=== PATIENT | male | born 1970 | race Caucasian/White ===

== ENCOUNTER 2022-08-19 11:55 | Inpatient (IN) | payer OTHER ==
[2022-08-19 15:20] VITALS: BMI 25.8
[2022-08-19] MEDS ORDERED: METOPROLOL TARTRATE 25 MG TABLET (FP) PO ONE (19:07)
[2022-08-19] MEDS ORDERED: METOPROLOL TARTRATE 25 MG TABLET (FP) ONE (20:58)
[2022-08-19] MEDS ORDERED: LOPERAMIDE HCL 2 MG CAPSULE PO PRN (21:32)
[2022-08-19] MEDS ORDERED: MAGNESIUM HYDROX 2400MG/30ML ORAL SUSPENSION 30 ML CUP PO PRN (21:32)
[2022-08-19] MEDS ORDERED: BENZOCAINE/MENTHOL (CHLORASEPTIC ) LOZENGE MM PRN (21:32)
[2022-08-19] MEDS ORDERED: IBUPROFEN 400 MG TABLET (FP) PO PRN (21:32)
[2022-08-19] MEDS ORDERED: MAG HYDROX/AL HYDROX/SIMETH 30 ML UNIT-DOSE CUP PO PRN (21:32)
[2022-08-19] MEDS ORDERED: ACETAMINOPHEN 325 MG TABLET (FP) PO PRN (21:32)
[2022-08-19] MEDS ORDERED: POLYETHYLENE GLYCOL (HEALTHYLAX) 3350 17 GM PACKET PO PRN (21:32)
[2022-08-19] MEDS ORDERED: guaiFENesin 200 MG/10 ML 10 ML UNIT-DOSE CUPS PO PRN (21:32)
[2022-08-19] MEDS ORDERED: P-EPHED 60MG/TRIPROLIDI 2.5MG TABLET PO PRN (21:32)
[2022-08-19] MEDS ORDERED: TUBERCULIN PPD 5 TU/0.1ML VIAL ID ONE (22:50)
[2022-08-19] MEDS: GABAPENTIN 300 MG CAPSULE PO SCH (22:53)
[2022-08-19] MEDS: ATORVASTATIN CA 20 MG TABLET (FP) PO SCH (22:53)
[2022-08-19] MEDS: THIAMINE HCL 100 MG TABLET (FP) PO SCH (22:53)
[2022-08-19] MEDS: METOPROLOL TARTRATE 25 MG TABLET (FP) PO SCH (22:53)
[2022-08-19] MEDS: APIXABAN 5 MG TABLET PO SCH (22:53)
[2022-08-20] MEDS: hydrOXYzine PAMOATE 25 MG CAPSULE (FP) PO PRN (06:14)
[2022-08-20] MEDS: GABAPENTIN 300 MG CAPSULE PO SCH ×3 (06:14→21:06)
[2022-08-20] MEDS ORDERED: LEVOTHYROXINE NA 75 MCG TABLET (FP) PO SCH (07:00)
[2022-08-20] MEDS: PRENATAL VITAMINS W/ FOLIC ACID TABLET (FP) PO SCH (09:43)
[2022-08-20] MEDS: LEVOTHYROXINE NA 25 MCG TABLET (FP) PO SCH (09:43)
[2022-08-20] MEDS: APIXABAN 5 MG TABLET PO SCH ×2 (09:44→21:06)
[2022-08-20] MEDS: METOPROLOL TARTRATE 25 MG TABLET (FP) PO SCH ×2 (09:44→21:06)
[2022-08-20] MEDS: FOLIC ACID 1 MG TABLET (FP) PO SCH (09:44)
[2022-08-20] MEDS: PANTOPRAZOLE 20 MG TABLET PO SCH (09:44)
[2022-08-20 12:18] LABS: URINE APPEARANCE CLEAR; URINE BILIRUBIN NEGATIVE (NEGATIVE); URINE COLOR YELLOW; URINE GLUCOSE (UA) NEGATIVE (NEGATIVE); URINE KETONE NEGATIVE (NEGATIVE); URINE LEUK ESTERASE NEGATIVE (NEGATIVE); URINE NITRITE NEGATIVE (NEGATIVE); URINE PROTEIN NEGATIVE (NEGATIVE); URINE UROBILINOGEN 0.2 mg/dL (0.2-1.0)
[2022-08-20 12:27] LABS: HEMATOCRIT 38.3 % (35.4-49); HEMOGLOBIN 12.8 GM/dL (11.7-16.9); MCH 32.6 pg (25.7-33.7); MCHC 33.5 g/dl (32.0-35.9); MEAN CELL VOLUME 97.4 fl (80-96); MEAN PLT VOLUME 8.7 fl (7.5-11.1); PLATELET COUNT 171 10^3/uL (134-434); RBC 3.93 M/mm3 (4.00-5.60); RDW 15.8 % (11.9-15.9)
[2022-08-20 12:41] LABS: CALCIUM 9.6 mg/dL (8.5-10.1)
[2022-08-20 12:42] LABS: ALBUMIN 3.6 g/dl (3.4-5.0); BLOOD UREA NITROGEN 8.7 mg/dL (7-18)
[2022-08-20 12:45] LABS: CREATININE 0.7 mg/dL (0.55-1.3)
[2022-08-20 12:46] LABS: BILIRUBIN,TOTAL 0.4 mg/dL (0.2-1); TOT PROT 7.1 g/dl (6.4-8.2)
[2022-08-20] MEDS: THIAMINE HCL 100 MG TABLET (FP) PO SCH (21:06)
[2022-08-20] MEDS: ATORVASTATIN CA 20 MG TABLET (FP) PO SCH (21:06)
[2022-08-20] MEDS: MELATONIN 5 MG TABLETS PO PRN (21:06)
[2022-08-21] MEDS: GABAPENTIN 300 MG CAPSULE PO SCH ×3 (06:57→21:08)
[2022-08-21] MEDS: LEVOTHYROXINE NA 25 MCG TABLET (FP) PO SCH (06:57)
[2022-08-21] MEDS: PANTOPRAZOLE 20 MG TABLET PO SCH (09:50)
[2022-08-21] MEDS: FOLIC ACID 1 MG TABLET (FP) PO SCH (09:50)
[2022-08-21] MEDS: METOPROLOL TARTRATE 25 MG TABLET (FP) PO SCH ×2 (09:50→21:08)
[2022-08-21] MEDS: APIXABAN 5 MG TABLET PO SCH ×2 (09:50→21:08)
[2022-08-21] MEDS: PRENATAL VITAMINS W/ FOLIC ACID TABLET (FP) PO SCH (09:50)
[2022-08-21] MEDS: ATORVASTATIN CA 20 MG TABLET (FP) PO SCH (21:08)
[2022-08-21] MEDS: MELATONIN 5 MG TABLETS PO PRN (21:08)
[2022-08-21] MEDS: THIAMINE HCL 100 MG TABLET (FP) PO SCH (21:08)
[2022-08-22] MEDS: hydrOXYzine PAMOATE 25 MG CAPSULE (FP) PO PRN (06:11)
[2022-08-22] MEDS: LEVOTHYROXINE NA 25 MCG TABLET (FP) PO SCH (06:12)
[2022-08-22] MEDS: GABAPENTIN 300 MG CAPSULE PO SCH ×3 (06:12→21:09)
[2022-08-22] MEDS: FOLIC ACID 1 MG TABLET (FP) PO SCH (10:02)
[2022-08-22] MEDS: PANTOPRAZOLE 20 MG TABLET PO SCH (10:02)
[2022-08-22] MEDS: METOPROLOL TARTRATE 25 MG TABLET (FP) PO SCH ×2 (10:02→21:09)
[2022-08-22] MEDS: APIXABAN 5 MG TABLET PO SCH ×2 (10:02→21:08)
[2022-08-22] MEDS: PRENATAL VITAMINS W/ FOLIC ACID TABLET (FP) PO SCH (10:02)
[2022-08-22] MEDS: ATORVASTATIN CA 20 MG TABLET (FP) PO SCH (21:08)
[2022-08-22] MEDS: THIAMINE HCL 100 MG TABLET (FP) PO SCH (21:09)
[2022-08-22] MEDS: MELATONIN 5 MG TABLETS PO PRN (21:09)
[2022-08-23] MEDS: GABAPENTIN 300 MG CAPSULE PO SCH ×3 (05:51→21:20)
[2022-08-23] MEDS: LEVOTHYROXINE NA 25 MCG TABLET (FP) PO SCH (06:36)
[2022-08-23] MEDS ORDERED: cloNIDine HCL 0.1 MG TABLET PO ONE (07:02)
[2022-08-23] MEDS: PRENATAL VITAMINS W/ FOLIC ACID TABLET (FP) PO SCH (09:42)
[2022-08-23] MEDS: FOLIC ACID 1 MG TABLET (FP) PO SCH (09:42)
[2022-08-23] MEDS: PANTOPRAZOLE 20 MG TABLET PO SCH (09:42)
[2022-08-23] MEDS: METOPROLOL TARTRATE 25 MG TABLET (FP) PO SCH ×2 (09:42→21:20)
[2022-08-23] MEDS: APIXABAN 5 MG TABLET PO SCH ×2 (09:42→21:20)
[2022-08-23] MEDS: THIAMINE HCL 100 MG TABLET (FP) PO SCH (21:19)
[2022-08-23] MEDS: ATORVASTATIN CA 20 MG TABLET (FP) PO SCH (21:20)
[2022-08-23] MEDS: MELATONIN 5 MG TABLETS PO PRN (21:20)
[2022-08-24] MEDS: LEVOTHYROXINE NA 25 MCG TABLET (FP) PO SCH (06:04)
[2022-08-24] MEDS: GABAPENTIN 300 MG CAPSULE PO SCH ×3 (06:05→21:05)
[2022-08-24] MEDS: APIXABAN 5 MG TABLET PO SCH ×2 (10:13→21:05)
[2022-08-24] MEDS: PANTOPRAZOLE 20 MG TABLET PO SCH (10:13)
[2022-08-24] MEDS: METOPROLOL TARTRATE 25 MG TABLET (FP) PO SCH ×2 (10:13→21:05)
[2022-08-24] MEDS: FOLIC ACID 1 MG TABLET (FP) PO SCH (10:13)
[2022-08-24] MEDS: PRENATAL VITAMINS W/ FOLIC ACID TABLET (FP) PO SCH (10:13)
[2022-08-24] MEDS: THIAMINE HCL 100 MG TABLET (FP) PO SCH (21:05)
[2022-08-24] MEDS: ATORVASTATIN CA 20 MG TABLET (FP) PO SCH (21:05)
[2022-08-24] MEDS: MELATONIN 5 MG TABLETS PO PRN (21:05)
[2022-08-24] MEDS: hydrOXYzine PAMOATE 25 MG CAPSULE (FP) PO PRN (21:06)
[2022-08-25] MEDS: LEVOTHYROXINE NA 25 MCG TABLET (FP) PO SCH (06:08)
[2022-08-25] MEDS: GABAPENTIN 300 MG CAPSULE PO SCH ×3 (06:09→21:15)
[2022-08-25] MEDS: PANTOPRAZOLE 20 MG TABLET PO SCH (09:40)
[2022-08-25] MEDS: FOLIC ACID 1 MG TABLET (FP) PO SCH (09:40)
[2022-08-25] MEDS: PRENATAL VITAMINS W/ FOLIC ACID TABLET (FP) PO SCH (09:40)
[2022-08-25] MEDS: APIXABAN 5 MG TABLET PO SCH ×2 (09:41→21:15)
[2022-08-25] MEDS: METOPROLOL TARTRATE 25 MG TABLET (FP) PO SCH ×2 (09:41→10:31)
[2022-08-25] MEDS: hydrOXYzine PAMOATE 25 MG CAPSULE (FP) PO PRN (18:47)
[2022-08-25] MEDS: METOPROLOL TARTRATE 50 MG TABLET (FP) PO SCH (18:47)
[2022-08-25] MEDS: ATORVASTATIN CA 20 MG TABLET (FP) PO SCH (21:15)
[2022-08-25] MEDS: MELATONIN 5 MG TABLETS PO PRN (21:15)
[2022-08-25] MEDS: THIAMINE HCL 100 MG TABLET (FP) PO SCH (21:15)
[2022-08-26] MEDS: GABAPENTIN 300 MG CAPSULE PO SCH ×3 (05:55→21:07)
[2022-08-26] MEDS: LEVOTHYROXINE NA 25 MCG TABLET (FP) PO SCH (06:42)
[2022-08-26] MEDS: FOLIC ACID 1 MG TABLET (FP) PO SCH (10:03)
[2022-08-26] MEDS: APIXABAN 5 MG TABLET PO SCH ×2 (10:03→21:06)
[2022-08-26] MEDS: PRENATAL VITAMINS W/ FOLIC ACID TABLET (FP) PO SCH (10:03)
[2022-08-26] MEDS: PANTOPRAZOLE 20 MG TABLET PO SCH (10:03)
[2022-08-26] MEDS: METOPROLOL TARTRATE 25 MG TABLET (FP) PO SCH (10:03)
[2022-08-26] MEDS: METOPROLOL TARTRATE 50 MG TABLET (FP) PO SCH (18:50)
[2022-08-26] MEDS: MELATONIN 5 MG TABLETS PO PRN (21:07)
[2022-08-26] MEDS: THIAMINE HCL 100 MG TABLET (FP) PO SCH (21:07)
[2022-08-26] MEDS: ATORVASTATIN CA 20 MG TABLET (FP) PO SCH (21:07)
[2022-08-27] MEDS: GABAPENTIN 300 MG CAPSULE PO SCH ×3 (06:38→21:16)
[2022-08-27] MEDS: LEVOTHYROXINE NA 25 MCG TABLET (FP) PO SCH (06:38)
[2022-08-27] MEDS: hydrOXYzine PAMOATE 25 MG CAPSULE (FP) PO PRN (06:40)
[2022-08-27] MEDS: PRENATAL VITAMINS W/ FOLIC ACID TABLET (FP) PO SCH (10:10)
[2022-08-27] MEDS: FOLIC ACID 1 MG TABLET (FP) PO SCH (10:10)
[2022-08-27] MEDS: METOPROLOL TARTRATE 25 MG TABLET (FP) PO SCH (10:10)
[2022-08-27] MEDS: APIXABAN 5 MG TABLET PO SCH ×2 (10:10→21:17)
[2022-08-27] MEDS: PANTOPRAZOLE 20 MG TABLET PO SCH (10:11)
[2022-08-27] MEDS: METOPROLOL TARTRATE 50 MG TABLET (FP) PO SCH (18:55)
[2022-08-27] MEDS: THIAMINE HCL 100 MG TABLET (FP) PO SCH (21:17)
[2022-08-27] MEDS: MELATONIN 5 MG TABLETS PO PRN (21:17)
[2022-08-27] MEDS: ATORVASTATIN CA 20 MG TABLET (FP) PO SCH (21:17)
[2022-08-28] MEDS: LEVOTHYROXINE NA 25 MCG TABLET (FP) PO SCH (06:01)
[2022-08-28] MEDS: GABAPENTIN 300 MG CAPSULE PO SCH ×3 (06:01→21:06)
[2022-08-28] MEDS: hydrOXYzine PAMOATE 25 MG CAPSULE (FP) PO PRN ×2 (06:02→18:14)
[2022-08-28] MEDS: APIXABAN 5 MG TABLET PO SCH ×2 (09:53→21:06)
[2022-08-28] MEDS: FOLIC ACID 1 MG TABLET (FP) PO SCH (09:53)
[2022-08-28] MEDS: PRENATAL VITAMINS W/ FOLIC ACID TABLET (FP) PO SCH (09:53)
[2022-08-28] MEDS: METOPROLOL TARTRATE 25 MG TABLET (FP) PO SCH (09:53)
[2022-08-28] MEDS: PANTOPRAZOLE 20 MG TABLET PO SCH (09:54)
[2022-08-28] MEDS: METOPROLOL TARTRATE 50 MG TABLET (FP) PO SCH (18:14)
[2022-08-28] MEDS: MELATONIN 5 MG TABLETS PO PRN (21:06)
[2022-08-28] MEDS: ATORVASTATIN CA 20 MG TABLET (FP) PO SCH (21:06)
[2022-08-28] MEDS: THIAMINE HCL 100 MG TABLET (FP) PO SCH (21:06)
[2022-08-29] MEDS: GABAPENTIN 300 MG CAPSULE PO SCH ×3 (06:07→21:26)
[2022-08-29] MEDS: LEVOTHYROXINE NA 25 MCG TABLET (FP) PO SCH (06:07)
[2022-08-29] MEDS: hydrOXYzine PAMOATE 25 MG CAPSULE (FP) PO PRN (06:08)
[2022-08-29] MEDS: PRENATAL VITAMINS W/ FOLIC ACID TABLET (FP) PO SCH (09:56)
[2022-08-29] MEDS: PANTOPRAZOLE 20 MG TABLET PO SCH (09:57)
[2022-08-29] MEDS: METOPROLOL TARTRATE 25 MG TABLET (FP) PO SCH (09:57)
[2022-08-29] MEDS: FOLIC ACID 1 MG TABLET (FP) PO SCH (09:57)
[2022-08-29] MEDS: APIXABAN 5 MG TABLET PO SCH ×2 (09:57→21:26)
[2022-08-29] MEDS: METOPROLOL TARTRATE 50 MG TABLET (FP) PO SCH (18:50)
[2022-08-29] MEDS: MELATONIN 5 MG TABLETS PO PRN (21:26)
[2022-08-29] MEDS: THIAMINE HCL 100 MG TABLET (FP) PO SCH (21:26)
[2022-08-29] MEDS: ATORVASTATIN CA 20 MG TABLET (FP) PO SCH (21:26)
[2022-08-30] MEDS: GABAPENTIN 300 MG CAPSULE PO SCH ×3 (06:05→21:11)
[2022-08-30] MEDS: LEVOTHYROXINE NA 25 MCG TABLET (FP) PO SCH (06:05)
[2022-08-30] MEDS: PRENATAL VITAMINS W/ FOLIC ACID TABLET (FP) PO SCH (10:05)
[2022-08-30] MEDS: METOPROLOL TARTRATE 25 MG TABLET (FP) PO SCH (10:05)
[2022-08-30] MEDS: APIXABAN 5 MG TABLET PO SCH ×2 (10:05→21:11)
[2022-08-30] MEDS: PANTOPRAZOLE 20 MG TABLET PO SCH (10:05)
[2022-08-30] MEDS: FOLIC ACID 1 MG TABLET (FP) PO SCH (10:05)
[2022-08-30] MEDS: METOPROLOL TARTRATE 50 MG TABLET (FP) PO SCH (18:20)
[2022-08-30] MEDS: hydrOXYzine PAMOATE 25 MG CAPSULE (FP) PO PRN (21:11)
[2022-08-30] MEDS: THIAMINE HCL 100 MG TABLET (FP) PO SCH (21:11)
[2022-08-30] MEDS: MELATONIN 5 MG TABLETS PO PRN (21:11)
[2022-08-30] MEDS: ATORVASTATIN CA 20 MG TABLET (FP) PO SCH (21:11)
[2022-08-31] MEDS: LEVOTHYROXINE NA 25 MCG TABLET (FP) PO SCH (06:17)
[2022-08-31] MEDS: hydrOXYzine PAMOATE 25 MG CAPSULE (FP) PO PRN (06:17)
[2022-08-31] MEDS: GABAPENTIN 300 MG CAPSULE PO SCH ×3 (06:17→21:35)
[2022-08-31 08:05] VITALS: RESP 18
[2022-08-31] MEDS: METOPROLOL TARTRATE 25 MG TABLET (FP) PO SCH (09:48)
[2022-08-31] MEDS: FOLIC ACID 1 MG TABLET (FP) PO SCH (09:48)
[2022-08-31] MEDS: PRENATAL VITAMINS W/ FOLIC ACID TABLET (FP) PO SCH (09:48)
[2022-08-31] MEDS: APIXABAN 5 MG TABLET PO SCH ×2 (09:48→21:35)
[2022-08-31] MEDS: PANTOPRAZOLE 20 MG TABLET PO SCH (09:48)
[2022-08-31] MEDS: METOPROLOL TARTRATE 50 MG TABLET (FP) PO SCH (18:57)
[2022-08-31] MEDS: MELATONIN 5 MG TABLETS PO PRN (21:35)
[2022-08-31] MEDS: THIAMINE HCL 100 MG TABLET (FP) PO SCH (21:35)
[2022-08-31] MEDS: ATORVASTATIN CA 20 MG TABLET (FP) PO SCH (21:35)
[2022-09-01] MEDS: GABAPENTIN 300 MG CAPSULE PO SCH (05:44)
[2022-09-01] MEDS: hydrOXYzine PAMOATE 25 MG CAPSULE (FP) PO PRN (05:45)
[2022-09-01] MEDS: LEVOTHYROXINE NA 25 MCG TABLET (FP) PO SCH (06:02)
[2022-09-01 06:33] VITALS: TEMP 98
[2022-09-01 09:05] VITALS: BP 146/86; PULSE 87
[2022-09-01] MEDS: APIXABAN 5 MG TABLET PO SCH (10:06)
[2022-09-01] MEDS: FOLIC ACID 1 MG TABLET (FP) PO SCH (10:06)
[2022-09-01] MEDS: METOPROLOL TARTRATE 25 MG TABLET (FP) PO SCH (10:06)
[2022-09-01] MEDS: PRENATAL VITAMINS W/ FOLIC ACID TABLET (FP) PO SCH (10:06)
[2022-09-01] MEDS: PANTOPRAZOLE 20 MG TABLET PO SCH (10:06)
== END 2022-09-01 12:50 | disposition home or self-care (01) | DRG 772 ==
LOC: YASAS 11:55 → Y3W 22:29
PROVIDERS: ADMIT Allergy & Immunology; ATTEND Allergy & Immunology
PROC: HZ42ZZZ Group Counseling for Substance Abuse Treatment, Cognitive-Behavioral (ICD-10-PCS; principal; 2022-08-19)
DX: F10.20 Alcohol dependence, uncomplicated (principal); I10 Essential (primary) hypertension; E03.9 Hypothyroidism, unspecified; E78.5 Hyperlipidemia, unspecified; K21.9 Gastro-esophageal reflux disease without esophagitis; Z86.711 Personal history of pulmonary embolism; Z86.718 Personal history of other venous thrombosis and embolism; Z79.01 Long term (current) use of anticoagulants
CPT/HCPCS: 36415; 80053; 81003; 85027; 86780; C9803-CS; U0003; U0005

== ENCOUNTER 2023-04-06 12:39 | Inpatient (IN) | payer OTHER ==
[2023-04-06 13:07] VITALS: BMI 23.6
[2023-04-06] MEDS ORDERED: BENZOCAINE/MENTHOL (CHLORASEPTIC ) LOZENGE MM PRN (14:29)
[2023-04-06] MEDS ORDERED: MAGNESIUM HYDROX 2400MG/30ML ORAL SUSPENSION 30 ML CUP PO PRN (14:29)
[2023-04-06] MEDS ORDERED: IBUPROFEN 400 MG TABLET (FP) PO PRN (14:29)
[2023-04-06] MEDS ORDERED: ACETAMINOPHEN 325 MG TABLET (FP) PO PRN (14:29)
[2023-04-06] MEDS ORDERED: IBUPROFEN 600 MG TABLET (FP) PO PRN (14:29)
[2023-04-06] MEDS ORDERED: LOPERAMIDE HCL 2 MG CAPSULE PO PRN (14:29)
[2023-04-06] MEDS ORDERED: COLLOIDAL OATMEAL 1 BAR EACH TP PRN (14:29)
[2023-04-06] MEDS ORDERED: hydrOXYzine PAMOATE 25 MG CAPSULE (FP) PO PRN (14:29)
[2023-04-06] MEDS ORDERED: POLYETHYLENE GLYCOL (HEALTHYLAX) 3350 17 GM PACKET PO PRN (14:29)
[2023-04-06] MEDS ORDERED: NALOXONE HCL (KLOXXADO) 8 MG SPRAY NS PRN (14:29)
[2023-04-06] MEDS ORDERED: NALOXONE HCL 0.4 MG/ML VIAL IM PRN (14:29)
[2023-04-06] MEDS ORDERED: guaiFENesin 600 MG TABLET.ER (FP) PO PRN (14:29)
[2023-04-06] MEDS ORDERED: MAG HYDROX/AL HYDROX/SIMETH 30 ML UNIT-DOSE CUP PO PRN (14:29)
[2023-04-06] MEDS ORDERED: BENZONATATE 200 MG CAPSULE PO PRN (14:29)
[2023-04-06 17:05] LABS: POTASSIUM 4.4 mmol/L (3.5-5.1)
[2023-04-06 17:09] LABS: HEMATOCRIT 39.3 % (35.4-49); HEMOGLOBIN 13.5 GM/dL (11.7-16.9); MCH 32.3 pg (25.7-33.7); MCHC 34.3 g/dl (32.0-35.9); MEAN CELL VOLUME 94.3 fl (80-96); MEAN PLT VOLUME 8.8 fl (7.5-11.1); PLATELET COUNT 125 10^3/uL (134-434); RBC 4.16 M/mm3 (4.00-5.60); RDW 14.1 % (11.9-15.9); WHITE BLOOD COUNT 4.9 K/mm3 (4.0-10.0)
[2023-04-06 17:10] LABS: ALBUMIN 3.6 g/dl (3.4-5.0); BLOOD UREA NITROGEN 12.2 mg/dL (7-18)
[2023-04-06 17:13] LABS: CREATININE 0.9 mg/dL (0.55-1.3)
[2023-04-06 17:14] LABS: BILIRUBIN,TOTAL 0.3 mg/dL (0.2-1); TOT PROT 7.2 g/dl (6.4-8.2)
[2023-04-06] MEDS: MELATONIN 5 MG TABLETS PO SCH (21:17)
[2023-04-06] MEDS: THIAMINE HCL 100 MG TABLET (FP) PO SCH (21:17)
[2023-04-07] MEDS: PRENATAL VITAMINS W/ FOLIC ACID TABLET (FP) PO SCH (10:18)
[2023-04-07 11:56] LABS: URINE APPEARANCE Clear; URINE BILIRUBIN Negative (NEGATIVE); URINE COLOR Yellow; URINE GLUCOSE (UA) Negative (NEGATIVE); URINE KETONE Negative (NEGATIVE); URINE LEUK ESTERASE Negative (NEGATIVE); URINE NITRITE Negative (NEGATIVE); URINE PROTEIN Negative (NEGATIVE); URINE UROBILINOGEN 0.2 mg/dL (0.2-1.0)
[2023-04-07] MEDS: LEVOTHYROXINE NA 25 MCG TABLET (FP) PO SCH (14:46)
[2023-04-07] MEDS: PANTOPRAZOLE 20 MG TABLET PO SCH (14:46)
[2023-04-07] MEDS: METOPROLOL TARTRATE 50 MG TABLET (FP) PO SCH (14:48)
[2023-04-07] MEDS: APIXABAN 5 MG TABLET PO SCH ×2 (14:48→21:04)
[2023-04-07] MEDS: ATORVASTATIN CA 20 MG TABLET (FP) PO SCH (21:04)
[2023-04-07] MEDS: THIAMINE HCL 100 MG TABLET (FP) PO SCH (21:04)
[2023-04-07] MEDS: MELATONIN 5 MG TABLETS PO SCH (21:04)
[2023-04-08] MEDS: LEVOTHYROXINE NA 25 MCG TABLET (FP) PO SCH (06:37)
[2023-04-08] MEDS: APIXABAN 5 MG TABLET PO SCH ×2 (09:30→21:02)
[2023-04-08] MEDS: PANTOPRAZOLE 20 MG TABLET PO SCH (09:30)
[2023-04-08] MEDS: PRENATAL VITAMINS W/ FOLIC ACID TABLET (FP) PO SCH (09:30)
[2023-04-08] MEDS: METOPROLOL TARTRATE 50 MG TABLET (FP) PO SCH (09:30)
[2023-04-08] MEDS: MELATONIN 5 MG TABLETS PO SCH (21:02)
[2023-04-08] MEDS: THIAMINE HCL 100 MG TABLET (FP) PO SCH (21:02)
[2023-04-08] MEDS: ATORVASTATIN CA 20 MG TABLET (FP) PO SCH (21:02)
[2023-04-09] MEDS: LEVOTHYROXINE NA 25 MCG TABLET (FP) PO SCH (06:05)
[2023-04-09] MEDS: APIXABAN 5 MG TABLET PO SCH ×2 (10:11→21:05)
[2023-04-09] MEDS: METOPROLOL TARTRATE 50 MG TABLET (FP) PO SCH (10:11)
[2023-04-09] MEDS: PRENATAL VITAMINS W/ FOLIC ACID TABLET (FP) PO SCH (10:11)
[2023-04-09] MEDS: PANTOPRAZOLE 20 MG TABLET PO SCH (10:11)
[2023-04-09] MEDS: THIAMINE HCL 100 MG TABLET (FP) PO SCH (21:05)
[2023-04-09] MEDS: ATORVASTATIN CA 20 MG TABLET (FP) PO SCH (21:05)
[2023-04-09] MEDS: MELATONIN 5 MG TABLETS PO SCH (21:05)
[2023-04-10] MEDS: LEVOTHYROXINE NA 25 MCG TABLET (FP) PO SCH (06:05)
[2023-04-10] MEDS: APIXABAN 5 MG TABLET PO SCH ×2 (09:44→21:11)
[2023-04-10] MEDS: METOPROLOL TARTRATE 50 MG TABLET (FP) PO SCH (09:44)
[2023-04-10] MEDS: PRENATAL VITAMINS W/ FOLIC ACID TABLET (FP) PO SCH (09:44)
[2023-04-10] MEDS: PANTOPRAZOLE 20 MG TABLET PO SCH (09:44)
[2023-04-10] MEDS: THIAMINE HCL 100 MG TABLET (FP) PO SCH (21:11)
[2023-04-10] MEDS: ATORVASTATIN CA 20 MG TABLET (FP) PO SCH (21:11)
[2023-04-10] MEDS: MELATONIN 5 MG TABLETS PO SCH (21:11)
[2023-04-11] MEDS: LEVOTHYROXINE NA 25 MCG TABLET (FP) PO SCH (06:15)
[2023-04-11] MEDS: PRENATAL VITAMINS W/ FOLIC ACID TABLET (FP) PO SCH (09:07)
[2023-04-11] MEDS: APIXABAN 5 MG TABLET PO SCH ×2 (09:07→21:32)
[2023-04-11] MEDS: METOPROLOL TARTRATE 50 MG TABLET (FP) PO SCH (09:07)
[2023-04-11] MEDS: PANTOPRAZOLE 20 MG TABLET PO SCH (09:07)
[2023-04-11] MEDS: MELATONIN 5 MG TABLETS PO SCH (21:32)
[2023-04-11] MEDS: THIAMINE HCL 100 MG TABLET (FP) PO SCH (21:32)
[2023-04-11] MEDS: ATORVASTATIN CA 20 MG TABLET (FP) PO SCH (21:32)
[2023-04-12] MEDS: LEVOTHYROXINE NA 25 MCG TABLET (FP) PO SCH (06:14)
[2023-04-12] MEDS: APIXABAN 5 MG TABLET PO SCH ×2 (09:41→21:29)
[2023-04-12] MEDS: METOPROLOL TARTRATE 50 MG TABLET (FP) PO SCH (09:41)
[2023-04-12] MEDS: PANTOPRAZOLE 20 MG TABLET PO SCH (09:41)
[2023-04-12] MEDS: PRENATAL VITAMINS W/ FOLIC ACID TABLET (FP) PO SCH (09:41)
[2023-04-12] MEDS: MELATONIN 5 MG TABLETS PO SCH (21:29)
[2023-04-12] MEDS: THIAMINE HCL 100 MG TABLET (FP) PO SCH (21:29)
[2023-04-12] MEDS: ATORVASTATIN CA 20 MG TABLET (FP) PO SCH (21:29)
[2023-04-13] MEDS: LEVOTHYROXINE NA 25 MCG TABLET (FP) PO SCH (06:02)
[2023-04-13] MEDS: METOPROLOL TARTRATE 50 MG TABLET (FP) PO SCH (09:16)
[2023-04-13] MEDS: PRENATAL VITAMINS W/ FOLIC ACID TABLET (FP) PO SCH (09:16)
[2023-04-13] MEDS: PANTOPRAZOLE 20 MG TABLET PO SCH (09:16)
[2023-04-13] MEDS: APIXABAN 5 MG TABLET PO SCH ×2 (09:16→21:11)
[2023-04-13] MEDS: ATORVASTATIN CA 20 MG TABLET (FP) PO SCH (21:11)
[2023-04-13] MEDS: THIAMINE HCL 100 MG TABLET (FP) PO SCH (21:11)
[2023-04-13] MEDS: MELATONIN 5 MG TABLETS PO SCH (21:11)
[2023-04-14] MEDS: LEVOTHYROXINE NA 25 MCG TABLET (FP) PO SCH (06:10)
[2023-04-14] MEDS: PRENATAL VITAMINS W/ FOLIC ACID TABLET (FP) PO SCH (09:16)
[2023-04-14] MEDS: METOPROLOL TARTRATE 50 MG TABLET (FP) PO SCH (09:17)
[2023-04-14] MEDS: PANTOPRAZOLE 20 MG TABLET PO SCH (09:17)
[2023-04-14] MEDS: APIXABAN 5 MG TABLET PO SCH ×2 (09:17→21:09)
[2023-04-14] MEDS: MELATONIN 5 MG TABLETS PO SCH (21:09)
[2023-04-14] MEDS: ATORVASTATIN CA 20 MG TABLET (FP) PO SCH (21:09)
[2023-04-14] MEDS: THIAMINE HCL 100 MG TABLET (FP) PO SCH (21:09)
[2023-04-15] MEDS: LEVOTHYROXINE NA 25 MCG TABLET (FP) PO SCH (06:00)
[2023-04-15] MEDS: PRENATAL VITAMINS W/ FOLIC ACID TABLET (FP) PO SCH (10:25)
[2023-04-15] MEDS: PANTOPRAZOLE 20 MG TABLET PO SCH (10:26)
[2023-04-15] MEDS: METOPROLOL TARTRATE 50 MG TABLET (FP) PO SCH (10:26)
[2023-04-15] MEDS: APIXABAN 5 MG TABLET PO SCH ×2 (10:26→21:11)
[2023-04-15] MEDS: MELATONIN 5 MG TABLETS PO SCH (21:11)
[2023-04-15] MEDS: ATORVASTATIN CA 20 MG TABLET (FP) PO SCH (21:11)
[2023-04-15] MEDS: THIAMINE HCL 100 MG TABLET (FP) PO SCH (21:11)
[2023-04-16] MEDS: LEVOTHYROXINE NA 25 MCG TABLET (FP) PO SCH (06:12)
[2023-04-16] MEDS: PANTOPRAZOLE 20 MG TABLET PO SCH (09:38)
[2023-04-16] MEDS: APIXABAN 5 MG TABLET PO SCH ×2 (09:38→21:08)
[2023-04-16] MEDS: METOPROLOL TARTRATE 50 MG TABLET (FP) PO SCH (09:38)
[2023-04-16] MEDS: PRENATAL VITAMINS W/ FOLIC ACID TABLET (FP) PO SCH (09:38)
[2023-04-16] MEDS: MELATONIN 5 MG TABLETS PO SCH (21:08)
[2023-04-16] MEDS: ATORVASTATIN CA 20 MG TABLET (FP) PO SCH (21:08)
[2023-04-16] MEDS: THIAMINE HCL 100 MG TABLET (FP) PO SCH (21:08)
[2023-04-17] MEDS: LEVOTHYROXINE NA 25 MCG TABLET (FP) PO SCH (06:23)
[2023-04-17] MEDS: PANTOPRAZOLE 20 MG TABLET PO SCH (10:00)
[2023-04-17] MEDS: APIXABAN 5 MG TABLET PO SCH ×2 (10:00→21:10)
[2023-04-17] MEDS: METOPROLOL TARTRATE 50 MG TABLET (FP) PO SCH (10:00)
[2023-04-17] MEDS: PRENATAL VITAMINS W/ FOLIC ACID TABLET (FP) PO SCH (10:00)
[2023-04-17] MEDS: THIAMINE HCL 100 MG TABLET (FP) PO SCH (21:10)
[2023-04-17] MEDS: MELATONIN 5 MG TABLETS PO SCH (21:10)
[2023-04-17] MEDS: ATORVASTATIN CA 20 MG TABLET (FP) PO SCH (21:10)
[2023-04-18] MEDS: LEVOTHYROXINE NA 25 MCG TABLET (FP) PO SCH (06:15)
[2023-04-18] MEDS: METOPROLOL TARTRATE 50 MG TABLET (FP) PO SCH (10:00)
[2023-04-18] MEDS: PRENATAL VITAMINS W/ FOLIC ACID TABLET (FP) PO SCH (10:00)
[2023-04-18] MEDS: PANTOPRAZOLE 20 MG TABLET PO SCH (10:00)
[2023-04-18] MEDS: APIXABAN 5 MG TABLET PO SCH ×2 (10:00→21:06)
[2023-04-18] MEDS: ATORVASTATIN CA 20 MG TABLET (FP) PO SCH (21:06)
[2023-04-18] MEDS: THIAMINE HCL 100 MG TABLET (FP) PO SCH (21:06)
[2023-04-18] MEDS: MELATONIN 5 MG TABLETS PO SCH (21:07)
[2023-04-19] MEDS: LEVOTHYROXINE NA 25 MCG TABLET (FP) PO SCH (06:05)
[2023-04-19 07:10] VITALS: RESP 18; TEMP 97.5
[2023-04-19 09:10] VITALS: BP 159/98; PULSE 105
[2023-04-19] MEDS: METOPROLOL TARTRATE 50 MG TABLET (FP) PO SCH (09:31)
[2023-04-19] MEDS: APIXABAN 5 MG TABLET PO SCH (09:31)
[2023-04-19] MEDS: PANTOPRAZOLE 20 MG TABLET PO SCH (09:31)
[2023-04-19] MEDS: PRENATAL VITAMINS W/ FOLIC ACID TABLET (FP) PO SCH (09:32)
== END 2023-04-19 09:42 | disposition home or self-care (01) | DRG 772 ==
LOC: YASAS 12:39 → Y3W 20:50
PROVIDERS: ADMIT Allergy & Immunology; ATTEND Psychiatry & Neurology Pain Medicine
PROC: HZ42ZZZ Group Counseling for Substance Abuse Treatment, Cognitive-Behavioral (ICD-10-PCS; principal; 2023-04-03)
DX: F10.20 Alcohol dependence, uncomplicated (principal); I10 Essential (primary) hypertension; E78.5 Hyperlipidemia, unspecified; E03.9 Hypothyroidism, unspecified; K21.9 Gastro-esophageal reflux disease without esophagitis; Z87.891 Personal history of nicotine dependence; Z86.718 Personal history of other venous thrombosis and embolism; Z86.711 Personal history of pulmonary embolism; Z79.01 Long term (current) use of anticoagulants
CPT/HCPCS: 36415; 80053; 81003; 85027; 86780; 87635; 87811; 93005; 93010

== ENCOUNTER 2024-02-24 17:21 | Inpatient (IN) | payer OTHER ==
[2024-02-24 18:04] VITALS: BMI 26.6
[2024-02-24] MEDS ORDERED: MAG HYDROX/AL HYDROX/SIMETH 30 ML UNIT-DOSE CUP PO PRN (20:06)
[2024-02-24] MEDS ORDERED: POLYETHYLENE GLYCOL (HEALTHYLAX) 3350 17 GM PACKET PO PRN (20:06)
[2024-02-24] MEDS ORDERED: DICYCLOMINE HCL 10 MG CAPSULE PO PRN (20:06)
[2024-02-24] MEDS ORDERED: BENZONATATE 200 MG CAPSULE PO PRN (20:06)
[2024-02-24] MEDS ORDERED: BISMUTH SUBSALICYLATE 524 MG/30 ML PO PRN (20:06)
[2024-02-24] MEDS ORDERED: MAGNESIUM HYDROX 2400MG/30ML ORAL SUSPENSION 30 ML CUP PO PRN (20:06)
[2024-02-24] MEDS ORDERED: ONDANSETRON *ODT* 4 MG TABLET SL PRN (20:06)
[2024-02-24] MEDS ORDERED: BENZOCAINE/MENTHOL (CHLORASEPTIC ) LOZENGE MM PRN (20:06)
[2024-02-24] MEDS ORDERED: guaiFENesin 600 MG TABLET.ER (FP) PO PRN (20:06)
[2024-02-24] MEDS ORDERED: IBUPROFEN 400 MG TABLET (FP) PO PRN (20:06)
[2024-02-24] MEDS ORDERED: LOPERAMIDE HCL 2 MG CAPSULE PO PRN (20:06)
[2024-02-24] MEDS ORDERED: diazePAM 5 MG TABLET ONE (21:11)
[2024-02-24] MEDS: diazePAM 5 MG TABLET PO ONE (21:15)
[2024-02-24] MEDS: THIAMINE 100 MG TABLET PO SCH (22:17)
[2024-02-24] MEDS: MELATONIN 5 MG TABLETS PO SCH (22:17)
[2024-02-24] MEDS: METHOCARBAMOL 500 MG TABLET PO PRN (22:54)
[2024-02-24] MEDS: IBUPROFEN 600 MG TABLET (FP) PO PRN (22:54)
[2024-02-24] MEDS: diazePAM 5 MG TABLET PO SCH (23:00)
[2024-02-25] MEDS: PRENATAL VITAMINS W/ FOLIC ACID TABLET (FP) PO SCH (10:14)
[2024-02-25] MEDS: hydrOXYzine PAMOATE 25 MG CAPSULE (FP) PO PRN (10:15)
[2024-02-25 10:22] LABS: HEMATOCRIT 41.4 % (35.4-49); HEMOGLOBIN 14.1 GM/dL (11.7-16.9); MCH 33.1 pg (25.7-33.7); MEAN CELL VOLUME 97.3 fl (80-96); MEAN PLT VOLUME 8.4 fl (7.5-11.1); PLATELET COUNT 222 10^3/uL (134-434); RBC 4.25 M/mm3 (4.00-5.60); RDW 17.1 % (11.9-15.9); WHITE BLOOD COUNT 6.1 K/mm3 (4.0-10.0)
[2024-02-25 10:45] LABS: CHLORIDE 102 mmol/L (98-107); POTASSIUM 4.2 mmol/L (3.5-5.1); SODIUM 136 mmol/L (136-145)
[2024-02-25 10:47] LABS: ALBUMIN 3.4 g/dl (3.4-5.0); ANION GAP 11 mmol/L (4-13); BLOOD UREA NITROGEN 18.6 mg/dL (7-18); CALCIUM 8.7 mg/dL (8.5-10.1); CO2 24 mmol/L (21-32)
[2024-02-25 10:48] LABS: GLUCOSE,RANDOM 100 mg/dL (74-106)
[2024-02-25 10:50] LABS: SGOT/AST 27 U/L (15-37); SGPT/ALT 35 U/L (13-61)
[2024-02-25 10:51] LABS: CREATININE 0.6 mg/dL (0.55-1.3)
[2024-02-25 10:52] LABS: BILIRUBIN,TOTAL 1.2 mg/dL (0.2-1); TOT PROT 7.1 g/dl (6.4-8.2)
[2024-02-25 10:53] LABS: ALK PHOS 94 U/L (45-117)
[2024-02-25] MEDS: METOPROLOL TARTRATE 50 MG TABLET (FP) PO SCH (11:51)
[2024-02-25] MEDS: PANTOPRAZOLE 20 MG TABLET PO SCH (11:52)
[2024-02-25] MEDS: NALTREXONE HCL 50 MG TABLET PO SCH (11:52)
[2024-02-25] MEDS: ATORVASTATIN CA 20 MG TABLET (FP) PO SCH (22:24)
[2024-02-26] MEDS: diazePAM 5 MG TABLET PO SCH (05:32)
[2024-02-26] MEDS: LEVOTHYROXINE NA 75 MCG TABLET (FP) PO SCH (06:06)
[2024-02-26] MEDS: diazePAM 5 MG TABLET PO PRN (09:10)
[2024-02-27] MEDS: diazePAM 5 MG TABLET PO SCH (05:34)
[2024-02-27] MEDS: METOPROLOL TARTRATE 25 MG TABLET (FP) PO ONE (13:32)
[2024-02-27] MEDS: ACETAMINOPHEN 325 MG TABLET (FP) PO PRN (22:34)
[2024-02-28] MEDS: diazePAM 5 MG TABLET PO ONE (05:35)
[2024-02-28] MEDS: amLODIPine BESYLATE 5 MG TABLET (FP) PO ONE (09:55)
[2024-02-28] MEDS: HYDROCHLOROTHIAZIDE 25 MG TABLET (FP) PO SCH (14:29)
[2024-02-28] MEDS: MAGNESIUM OXIDE 400 MG TABLET (FP) PO SCH (22:51)
[2024-02-29] MEDS: amLODIPine BESYLATE 5 MG TABLET (FP) PO SCH (09:49)
[2024-02-29 16:59] VITALS: BP 136/87; PULSE 95; RESP 18; TEMP 98.6
== END 2024-02-29 17:07 | disposition other institution (70) | DRG 775 ==
LOC: YASAS 17:21 → Y6N 21:17
PROVIDERS: ADMIT Allergy & Immunology; ATTEND Surgery
PROC: HZ2ZZZZ Detoxification Services for Substance Abuse Treatment (ICD-10-PCS; principal; 2024-02-24)
DX: F10.230 Alcohol dependence with withdrawal, uncomplicated (principal); F32.A Depression, unspecified; I10 Essential (primary) hypertension; E03.9 Hypothyroidism, unspecified; E78.5 Hyperlipidemia, unspecified; K21.9 Gastro-esophageal reflux disease without esophagitis; R00.0 Tachycardia, unspecified; Z86.718 Personal history of other venous thrombosis and embolism; Z56.0 Unemployment, unspecified; Z59.00 Homelessness unspecified
CPT/HCPCS: 36415; 80053; 80305; 80307; 85027; 86780; 87811; 93005; 93010

== ENCOUNTER 2024-02-29 17:08 | Inpatient (IN) | payer OTHER ==
[2024-02-29] MEDS ORDERED: MAG HYDROX/AL HYDROX/SIMETH 30 ML UNIT-DOSE CUP PO PRN (17:55)
[2024-02-29] MEDS ORDERED: guaiFENesin 600 MG TABLET.ER (FP) PO PRN (17:55)
[2024-02-29] MEDS ORDERED: MAGNESIUM HYDROX 2400MG/30ML ORAL SUSPENSION 30 ML CUP PO PRN (17:55)
[2024-02-29] MEDS ORDERED: POLYETHYLENE GLYCOL (HEALTHYLAX) 3350 17 GM PACKET PO PRN (17:55)
[2024-02-29] MEDS ORDERED: BENZOCAINE/MENTHOL (CHLORASEPTIC ) LOZENGE MM PRN (17:55)
[2024-02-29] MEDS ORDERED: BENZONATATE 200 MG CAPSULE PO PRN (17:55)
[2024-02-29] MEDS ORDERED: METHOCARBAMOL 500 MG TABLET PO PRN (17:55)
[2024-02-29] MEDS ORDERED: LOPERAMIDE HCL 2 MG CAPSULE PO PRN (17:55)
[2024-02-29] MEDS: ACETAMINOPHEN 325 MG TABLET (FP) PO PRN (22:09)
[2024-02-29] MEDS: THIAMINE 100 MG TABLET PO SCH (22:10)
[2024-02-29] MEDS: ATORVASTATIN CA 20 MG TABLET (FP) PO SCH (22:10)
[2024-02-29] MEDS: MELATONIN 5 MG TABLETS PO SCH (22:10)
[2024-03-01 00:18] LABS: PH,URINE 5.5 (5.0-8.0); URINE APPEARANCE CLEAR; URINE BILIRUBIN NEGATIVE (NEGATIVE); URINE COLOR YELLOW; URINE GLUCOSE (UA) NEGATIVE (NEGATIVE); URINE KETONE NEGATIVE (NEGATIVE); URINE LEUK ESTERASE NEGATIVE (NEGATIVE); URINE NITRITE NEGATIVE (NEGATIVE); URINE PROTEIN NEGATIVE (NEGATIVE); URINE UROBILINOGEN 0.2 mg/dL (0.2-1.0)
[2024-03-01] MEDS: LEVOTHYROXINE NA 75 MCG TABLET (FP) PO SCH (06:22)
[2024-03-01] MEDS: cloNIDine HCL 0.1 MG TABLET PO ONE (06:44)
[2024-03-01] MEDS: METOPROLOL TARTRATE 50 MG TABLET (FP) PO SCH (09:48)
[2024-03-01] MEDS: FOLIC ACID 1 MG TABLET (FP) PO SCH (09:49)
[2024-03-01] MEDS: PRENATAL VITAMINS W/ FOLIC ACID TABLET (FP) PO SCH (09:49)
[2024-03-01] MEDS: PANTOPRAZOLE 20 MG TABLET PO SCH (09:49)
[2024-03-01] MEDS: IBUPROFEN 400 MG TABLET (FP) PO PRN (09:50)
[2024-03-01] MEDS: IBUPROFEN 600 MG TABLET (FP) PO PRN (22:14)
[2024-03-02] MEDS: LEVOTHYROXINE NA 25 MCG TABLET (FP) PO SCH (06:06)
[2024-03-03] MEDS: APIXABAN 5 MG TABLET PO SCH (12:42)
[2024-03-03] MEDS: HYDROCHLOROTHIAZIDE 25 MG TABLET (FP) PO SCH (14:37)
[2024-03-03] MEDS: amLODIPine BESYLATE 5 MG TABLET (FP) PO SCH (14:38)
[2024-03-06] MEDS: amLODIPine BESYLATE 2.5 MG TABLET (FP) PO ONE (14:41)
[2024-03-07] MEDS: amLODIPine BESYLATE 2.5 MG TABLET (FP) PO SCH (10:00)
[2024-03-09] MEDS: NALTREXONE HCL 50 MG TABLET PO SCH (13:46)
[2024-03-14] MEDS: amLODIPine BESYLATE 10 MG TABLET (FP) PO SCH (09:50)
[2024-03-14 11:39] LABS: INR 1.08 (0.83-1.09); PROTHROMBIN TIME (PATIENT) 12.2 SEC (9.7-13.0)
[2024-03-28 06:29] VITALS: RESP 18
[2024-03-29 06:38] VITALS: BP 143/84; PULSE 103; TEMP 97.6
== END 2024-03-29 07:34 | disposition home or self-care (01) | DRG 772 ==
LOC: YASAS 17:08 → Y3NR 17:11 → Y3E 03-02 12:13
PROVIDERS: ADMIT Allergy & Immunology; ATTEND Psychiatry & Neurology Pain Medicine
PROC: HZ42ZZZ Group Counseling for Substance Abuse Treatment, Cognitive-Behavioral (ICD-10-PCS; principal; 2024-02-29)
DX: F10.20 Alcohol dependence, uncomplicated (principal); F32.A Depression, unspecified; I10 Essential (primary) hypertension; E03.9 Hypothyroidism, unspecified; E78.5 Hyperlipidemia, unspecified; K21.9 Gastro-esophageal reflux disease without esophagitis; R60.0 Localized edema; R00.2 Palpitations; Z86.718 Personal history of other venous thrombosis and embolism; Z86.711 Personal history of pulmonary embolism; Z79.01 Long term (current) use of anticoagulants; Z59.00 Homelessness unspecified
CPT/HCPCS: 36415; 81003; 82550; 84484; 85610; 93005; 93010